=== PATIENT | male | born 1950 ===

== ENCOUNTER 2018-12-26 17:34 | Emergency (ER) | payer OTHER ==
[2018-12-26 17:41] VITALS: RESP 18; TEMP 97.8
[2018-12-26] MEDS ORDERED: Tetanus/Diphtheria Toxoids 0.5 ml Syringe IM ONE ×2 (18:15→18:23)
--- NOTE | 2018-12-26 19:24 | ED PDOC ---
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 states earlier today at work a heavy bar of soap accidentally fell on the top of her head. Reports no LOC but states afterwards she felt dizzy. Of note, pt. applied an OTC spray over the wound he sustained to help stop the bleeding. Denies other injury, LOC, N/V, anticoagulant use, neck pain. Last tetanus shot was "12 years ago." Past Medical History Reviewed: Historical Data, Nursing Documentation, Vital Signs Vital Signs: Last Vital Signs Temp 97.8 F 12/26/18 17:38 Pulse 79 12/26/18 17:38 Resp 18 12/26/18 17:38 BP 160/84 H 12/26/18 17:38 Pulse Ox 97 12/26/18 17:38 - Surgical History Surgical History: No Surg Hx - Family History Family History: States: No Known Family Hx - Allergies Allergies/Adverse Reactions: Allergies Allergy/AdvReac Type Severity Reaction Status Date / Time No Known Allergies Allergy Verified 12/26/18 17:38 Review of Systems ROS Statement: Except As Marked, All Systems Reviewed And Found Negative Neurological: Positive for: Headache Physical Exam - Physical Exam Appears: Positive for: Well, Non-toxic, No Acute Distress Head Exam: Negative for: ATRAUMATIC, NORMAL INSPECTION, NORMOCEPHALIC (superficial linear abrasion without laceration, swelling, or active bleeding on anterior R parietal scalp) Skin: Positive for: Normal Color, Warm. Negative for: Rash Eye Exam: Positive for: Normal appearance, EOMI, PERRL ENT: Positive for: Normal ENT Inspection, TM Is/Are (no hemotympanum b/l), Other (no facial or nasal bridge tenderness) Neck: Positive for: Normal, Painless ROM Cardiovascular/Chest: Positive for: Regular Rate, Rhythm Respiratory: Positive for: Normal Breath Sounds Gastrointestinal/Abdominal: Positive for: Soft. Negative for: Tenderness Back: Positive for: Normal Inspection. Negative for: L CVA Tenderness, R CVA Tenderness, Vertebral Tenderness (no c-spine tenderness) Neurologic/Psych: Positive for: Alert, Oriented (x3), Gait (steady, unassisted) - ECG O2 Sat by Pulse Oximetry: 97 - Progress ED Course And Treament: Wound irrigated, cleansed, and dressed. Tenavac IM ordered. 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 informed of results. Advised to f/u with [facility] for further evaluation but is to return to ED immediately if symptoms worsen. Re-evaluation Time: 18:50 (Gait steady, unassisted. Repeat neuro exam is non- focal. ) Condition: Re-examined, Improved Disposition - Clinical Impression Clinical Impression: Head injury - Patient ED Disposition Is Patient to be Admitted: No - Disposition Referrals: [facility] [Outside] Disposition: Routine/Home Disposition Time: 18:50 Condition: STABLE Additional Instructions: FOLLOW UP WITH [facility] FOR FURTHER EVALUATION RETURN TO ED IMMEDIATELY IF SYMPTOMS WORSEN LUPE KAY, thank you for letting us take care of you today. Your provider was Hakan Gordon MD and you were treated for DIZZINESS/LACERATION TO HEAD. The emergency medical care you received today was directed at your acute symptoms. If you were prescribed any medication, please fill it and take as directed. It may take several days for your symptoms to resolve. Return to the Emergency Department if your symptoms worsen, do not improve, or if you have any other problems. Please contact your doctor or call one of the physicians/clinics you have been referred to that are listed on the Patient Visit Information form that is included in your discharge packet. Bring any paperwork you were given at discharge with you along with any medications you are taking to your follow up visit. Our treatment cannot replace ongoing medical care by a primary care provider outside of the emergency department. Thank you for allowing the [facility] team to be part of your care today. If you had an X-Ray or CT scan: A Radiologist will review the ED reading if any change in treatment is needed we will contact you. If you had a blood, urine, or wound culture: It will take several days for the results, if any change in treatment is needed we will contact you. If you had an STI test: It will take 48 hours for the results. Please call after 1 week if you have not heard back. Instructions: Wound Care (DC), Minor Head Injury (DC) Forms: [facility] [employer] (Peruvian) Print Language: ICELANDIC
[2018-12-27 07:42] VITALS: BP 142/60; PULSE 88; O2SAT 99
--- NOTE | 2018-12-27 10:03 | CT ---
Date of service: 12/26/2018 PROCEDURE: CT HEAD WITHOUT CONTRAST. HISTORY: trauma COMPARISON: None available. TECHNIQUE: Axial computed tomography images were obtained through the head/brain without intravenous contrast. Supplemental Coronal and Sagittal projections created and reviewed. Radiation dose: Total exam DLP = 898.52 mGy-cm. This CT exam was performed using one or more of the following dose reduction techniques: Automated exposure control, adjustment of the mA and/or kV according to patient size, and/or use of iterative reconstruction technique. FINDINGS: HEMORRHAGE: No intracranial hemorrhage. BRAIN: No mass effect or edema. Cortical and cerebellar atrophy, periventricular small vessel disease. Most prominent areas of encephalomalacia reside in the frontal lobes bilaterally. VENTRICLES: Unremarkable. No hydrocephalus. CALVARIUM: Unremarkable. PARANASAL SINUSES: Unremarkable as visualized. No significant inflammatory changes. MASTOID AIR CELLS: Unremarkable as visualized. No inflammatory changes. OTHER FINDINGS: None. IMPRESSION: No acute intracranial abnormalities. No significant findings to account for the clinical presentation. Concordant results (preliminary interpretation) provided by [facility]. Procedure Completed: 18:34. Preliminary Report: Interpreted and electronically signed: 18:49. Final Interpretation: 09:59. December 27, 2018
== END 2018-12-26 20:15 | disposition home or self-care (01) ==
LOC: H.ER 17:34
DX: S09.90XA Unspecified injury of head, initial encounter (principal); W20.8XXA Other cause of strike by thrown, projected or falling object, initial encounter; Y99.0 Civilian activity done for income or pay; Z23 Encounter for immunization